=== PATIENT | male | born 2000 | race Caucasian/White ===

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

== ENCOUNTER 2025-01-03 10:12 | Emergency (ER) | payer BC ==
[2025-01-03 10:23] VITALS: RESP 18
[2025-01-03] MEDS: HYDROmorphone 1 MG/ML 1 ML SYRINGE IM STA (10:43)
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
--- NOTE | 2025-01-03 11:13 | XR ---
EXAMINATION TYPE: XR elbow complete RT DATE OF EXAM: 01/03/2025 11:06 AM INDICATION: Patient age:Male; 24 years old; Reason for study: fall, pain; PHH. pain COMPARISON: None TECHNIQUE: The right elbow was examined in AP, lateral, and oblique projections. FINDINGS: Postfixation changes with distal humerus fixation plate and screws. Hardware appears intact . This spans a comminuted distal humeral diaphyseal fracture. Fracture lines are still visible with s ome callus formation. 2 of the screws within the midportion are not attached to the fixation plate. N o acute fracture or dislocation. No joint effusion or soft tissue swelling. IMPRESSION: 1. Postfixation changes from distal humerus fracture. Fracture lines are still visible with some silvina giancarlo formation. 2. No acute fracture or dislocation. [facility], , 01/03/2025 11:11 AM
--- NOTE | 2025-01-03 11:28 | XR ---
EXAMINATION TYPE: XR lumbar spine 2 or 3V, XR thoracic spine 2V DATE OF EXAM: 01/03/2025 CLINICAL HISTORY: pain, fall TECHNIQUE: AP, lateral, and coned in L5-S1 lateral view of the lumbar spine was obtained. AP, lateral , swimmer's view of the thoracic spine was obtained. COMPARISON: CT abdomen pelvis 03/01/2016 FINDINGS: Postsurgical changes with bilateral pedicular screws and rods spanning T10-T11 and L1-L2. Hardware ap pears intact. This spans a T12 vertebral body fracture with minimal height loss and no retropulsion. There are anterior wedge compression deformities involving T3 and T4 vertebral bodies with approximat ace 10% height loss and no retropulsion. Disc spaces are within normal limits. The overlying soft ti ssue appears unremarkable. IMPRESSION: 1. Age-indeterminate anterior wedge compression deformities of the T3 and T4 vertebral bodies. Corre late with point tenderness. 2. Postsurgical fixation changes from T11 through L2 spanning T12 fracture. Hardware appears intact. [facility], , 01/03/2025 11:26 AM
[2025-01-03 11:55] VITALS: BP 110/86; PULSE 97; TEMP 98.6
== END 2025-01-03 11:55 | disposition home or self-care (01) ==
LOC: EC 10:12
DX: S50.01XA Contusion of right elbow, initial encounter (principal); S30.0XXA Contusion of lower back and pelvis, initial encounter; F17.290 Nicotine dependence, other tobacco product, uncomplicated; W00.0XXA Fall on same level due to ice and snow, initial encounter
CPT/HCPCS: 72070; 72100; 73080; 99283; 96372; J1171